=== PATIENT | female | born 1955 ===

== ENCOUNTER 2024-07-24 09:45 | Outpatient (REF) | payer OTHER, SELFPAY ==
--- NOTE | ~2024-07-24 | XR_ITS ---
EXAMINATION: XR KNEE 3 VIEWS LEFT, XR KNEE 1 VIEW RIGHT HISTORY: M25.562 - Pain in left knee COMPARISON: There are no prior studies available for comparison. FINDINGS: Three views of the left knee and a single standing AP view of the right knee are submitted. Osseous mineralization is normal. There is no fracture or dislocation. There is mild to moderate tricompartmental osteoarthritis with joint space narrowing and osteophyte formation. There is mild to moderate narrowing of the medial compartment of the right knee. The soft tissues are unremarkable. XR/XR knee LT 3V IMPRESSION: Osteoarthritis of the left knee as described. Electronically signed by: Blaine Rolon MD 07/27/2024 11:31 AM COLLEEN
--- NOTE | ~2024-07-24 | XR_ITS ---
EXAMINATION: XR KNEE 3 VIEWS LEFT, XR KNEE 1 VIEW RIGHT HISTORY: M25.562 - Pain in left knee COMPARISON: There are no prior studies available for comparison. FINDINGS: Three views of the left knee and a single standing AP view of the right knee are submitted. Osseous mineralization is normal. There is no fracture or dislocation. There is mild to moderate tricompartmental osteoarthritis with joint space narrowing and osteophyte formation. There is mild to moderate narrowing of the medial compartment of the right knee. The soft tissues are unremarkable. XR/XR knee RT 1V IMPRESSION: Osteoarthritis of the left knee as described. Electronically signed by: Blaine Rolon MD 07/27/2024 11:31 AM COLLEEN
--- OUTSIDE RECORDS SUMMARY | 2024-07-25 10:13 | XMS_ITS | Continuity of Care Document ---
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 [address] [place] [address] [address], [address], . [phone] Referring Provider: Trevon Almanzar, [address] [place] [address] [address], [place], [facility] [place]. tel:[phone] Family History Family Member Type Diagnosis Age At Onset No Information Payers Payer name Insurance type Covered green party ID Authoriza tion(s) No Information Social History [...]
== END 2024-07-24 09:46 | disposition home or self-care (01) ==
LOC: HO.HOSX 09:45
PROVIDERS: Visit Provider Physician Assistant
DX: M25.561 Pain in right knee (principal); M25.562 Pain in left knee; M17.12 Unilateral primary osteoarthritis, left knee
CPT/HCPCS: 20610; 73560; 73562; J1010; J2003

== ENCOUNTER 2024-07-24 13:11 | Outpatient (AMB) | payer OTHER, SELFPAY ==
--- NOTE | 2024-07-24 13:19 | A.OFFVIS_ITS ---
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 Patient reports having a fall in 2013 at work, she followed up with an orthopedic in [place] and attended PT twice. Her pain returned about 3 months and was seen by her PCP. Currently she has pain and pressure that radiates up her leg. States throbbing pain around her knee. Intermittent swelling in her calf. She uses a knee brace that helps with knee buckling and her pain. She mentions having a trip and fall on Wednesday at work due to walker. Finds some relief with Tylenol. 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 She states the pain is ongoing and worse with walking. 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 She states at the end of the day the pain is worse. She states in 2013 she had an injury where she may have dislocated her left knee. She has since then always had pain in the knee but it has been worsened over the last several months. She states a couple of days ago she did trip over a walker at work and fell injuring her left knee. 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 She has full range of motion. Lateral retropatellar tenderness present. Lujan's cyst present posteriorly. Calf supple nontender neurovascularly intact. Office Procedures AMB Joint Injection/Aspiration Joint Injection/Aspiration Primary Site: left knee Prep: site was prepped using aseptic technique, ethochloride spray was applied and injection warnings given Injected: 80 mg of, DepoMedrol, with 8 mL of, 1% plain lidocaine and in the joint Approach Used: anterolateral Procedure: The patient tolerated the procedure well and there was some relief with the local anesthesia Coding 83612 - Glenohumeral/Tronchanteric Bursa/Intraarticular Procedure code (CPT) selection complete Results Reviewed Results Reviewed: Xrays were obtained in the office today and personally reviewed by me of the left knee show patellofemoral arthritis with mild medial compartment arthritis worse on the right compared to the Assessment & Plan Assessment & Plan (1) Patellofemoral arthritis of left knee: Code(s): M17.12 - Unilateral primary osteoarthritis, left knee Category: Medical Plan: We discussed options today which include physical therapy anti-inflammatory use and cortisone injection. The patient did consent to proceed with left knee steroid injection which were performed in the office today. Patient tolerated procedure well. I did place an order for physical therapy for range of motion quad glute meat and hamstring strengthening exercises. She can use NSAIDs as needed and see us back if symptoms persist or worsen otherwise follow-up as needed. Orders: Orders XR knee RT 1V Today M25.561 - Pain in right knee PT Evaluation and Treatment Today M17.12 - Unilateral primary osteoarthritis, left knee XR knee LT 3V Today M25.562 - Pain in left knee Coding Level of Care Code New Pt Level 3 (41520) Complex EM visit Add On G2211 Diagnoses Patellofemoral arthritis of left knee M17.12 CPT Codes Coding - Joint 7: 39073 - Glenohumeral/Tronchanteric Bursa/Intraarticular ([id number])
[2024-07-24 13:43] VITALS: BMI 31.3
--- OUTSIDE RECORDS SUMMARY | 2024-07-24 15:19 | XMS_ITS | Continuity of Care Document ---
Author Organization [facility] Scientologist [facility] Address [address] [place] [phone] Phone Care Team Providers Care Information Assurance Manager Name Role Phone Trevon Linn Unavailable Unavailable Advance Directives Directive Yes / No Effective Date File Name No Information Encounters Encounter Description Practice Location Reason(s) For Visit Diagnoses Date Provider Providers Copied on Encounter Physician for Vein Scientologist [facility], [address], [place], [place], [id number], tel:[phone] [address] [facility] No Information Kaveh Lester. [address] [place] [address] [address], [place], [address], . [phone] Referring Provider: Trevon Almanzar, [address] [place] [address] [address], [place], [facility]. tel:[phone] Family History Family Member Type Diagnosis Age At Onset No Information Payers Payer name Insurance type Covered libertarian ID Authoriza tion(s) No Information Social History Type Description Quantity Date Captured Comments Sex Female Smoking Status No Information Chief Complaint And Reason For Visit No Information Reason For Referral Reason For Referral No Information History Of Present Illness Encounter Date Complaint History Of Prese nt Illness No Information Functional Status Date Functional Assessmen t No Information Instructions Date Instruction Additional Infor mation No Information Assessments Type Assessment Date No Information Patient Care Teams Name Effective Dates (start - stop) Status Members No Information
== END 2024-07-24 14:25 | disposition home or self-care (01) ==
PROVIDERS: PCP Student in an Organized Health Care Education/Training Program; Visit Provider Physician Assistant
DX: M17.12 Unilateral primary osteoarthritis, left knee (principal)
CPT/HCPCS: 20610; 99203

== ENCOUNTER → 2024-07-24 13:29 | Outpatient (BNV) | payer OTHER, SELFPAY | PROVIDERS: Visit Provider Radiology Diagnostic Radiology | DX: M25.562 Pain in left knee (principal); M25.561 Pain in right knee | CPT/HCPCS: 73560; 73562 ==